=== PATIENT | male | born 1945 | race Caucasian/White ===

== ENCOUNTER → 2016-05-13 | Day surgery (SDC) | payer OTHER ==
[~2016-05-13] MED LIST: AMLO10TA2 PO; ASPI81CH CHEW; ATOR40TA16 PO; CEPH-460 PO; CLOP75TA PO; FAMO20TA2 PO; FISHCAP4 PO; GABA400C5 PO; GUAI600T11 PO; ISOS60TA PO; LACTATED RINGER'S 1000 ML INJ 1,000 ML ONE; LIDOCAINE 1%/EPINEPHrine 1:100,000 SOLN 20 ML VIAL ONE; LOSA100T PO; MAGN400T2 PO; METO25TA3 PO; NOVONP2 SQ; NOVORP2 SQ; PANT40TA3 PO; PROPOFOL 200 MG/20 ML AMP IV ONE; SPIR25TA PO; TRAM50TA PO; TRAZ100T4 PO; ceFAZolin INJ 1,000 MG VIAL ONE
--- NOTE | 2016-05-13 14:56 | TN ---
cc: CATHRYN MAE M.D. DATE OF SURGERY: 05/13/2016 PREOPERATIVE DIAGNOSIS Right hand middle finger and ring finger stenosing tenosynovitis. POSTOPERATIVE DIAGNOSIS Right hand middle finger and ring finger stenosing tenosynovitis. PROCEDURE Right hand middle finger and ring finger trigger finger releases. SURGEON Lisette Mae MD ASSESSMENT Staff SPECIMEN None. ESTIMATED BLOOD LOSS None. COMPLICATIONS None. ANESTHESIA General, TIVA, local. DRAINS None. TOURNIQUET TIME 19 minutes at 250 mmHg. CONDITION Stable. PLAN OF ACTIVITY Per orders. DETAILS OF PROCEDURE The patient was brought into the operating room and had satisfactory anesthesia by Dr. Alarcon and Dr. Correa of the Department of Anesthesia. The right upper extremity was prepped and draped in the usual sterile manner. The extremity was exsanguinated by Randy wrap. The tourniquet was inflated to 250 mmHg. A total of 6 cc of 1% lidocaine with epinephrine was used for local anesthesia at both the ring finger and the middle finger. A longitudinal incision was made on the ring finger over the A1 delonte. Dissection continued through subcutaneous tissue. The A1 delonte was incised longitudinally with a 15 blade and also with Metzenbaum scissors. A longitudinal incision was made on the middle finger over the A1 delonte. Dissection was carried to the midline. Identification of the A1 delonte was made. It was incised with a 15 blade and Metzenbaum scissors. The patient was then awakened. He was able to actively flex and extend his hand with no further catching or triggering. The wound was closed in multiple layers using 2-0 Vicryl suture. Skin was approximated with multiple interrupted 2-0 nylon suture. The tourniquet was deflated. The wound itself was dry. Sterile dressings were applied. The patient tolerated the procedure well and arrived in the recovery room in stable and satisfactory condition. MD DAT Hebert/GILBERT /2:28 PM /2:43 PM
== END | disposition home or self-care (01) ==
LOC: ESDC 11:59
PROVIDERS: ATTEND Orthopaedic Surgery Orthopaedic Surgery of the Spine
DX: M65.331 Trigger finger, right middle finger (principal); M65.341 Trigger finger, right ring finger; E11.9 Type 2 diabetes mellitus without complications
CPT/HCPCS: 01810; 26055; 82948; J0690; J3010; J7120

== ENCOUNTER 2016-05-25 10:26 | Emergency (ER) | payer OTHER, MEDICARE ==
[~2016-05-25] VITALS: Ht 185.4 cm; Wt 127.0 kg
[2016-05-25 10:29] VITALS: BP 138/67; PULSE 62; RESP 20; TEMP 97.2; O2SAT 90
[2016-05-25] MEDS ORDERED: CEPH-460 PO (11:01)
[2016-05-25] MEDS ORDERED: TRAZ100T4 PO (11:14)
[2016-05-25] MEDS ORDERED: NOVONP2 SQ (11:14)
[2016-05-25] MEDS ORDERED: LOSA100T PO (11:14)
[2016-05-25] MEDS ORDERED: GUAI600T11 PO (11:14)
[2016-05-25] MEDS ORDERED: SPIR25TA PO (11:14)
[2016-05-25] MEDS ORDERED: METO25TA3 PO (11:14)
[2016-05-25] MEDS ORDERED: FISHCAP4 PO (11:14)
[2016-05-25] MEDS ORDERED: NOVORP2 SQ (11:14)
[2016-05-25] MEDS ORDERED: GABA400C5 PO (11:14)
[2016-05-25] MEDS ORDERED: ISOS60TA PO (11:14)
[2016-05-25] MEDS ORDERED: AMLO10TA2 PO (11:14)
[2016-05-25] MEDS ORDERED: MAGN400T2 PO (11:14)
[2016-05-25] MEDS ORDERED: ATOR40TA16 PO (11:14)
[2016-05-25] MEDS ORDERED: TRAM50TA PO (11:14)
[2016-05-25] MEDS ORDERED: PANT40TA3 PO (11:14)
[2016-05-25] MEDS ORDERED: CLOP75TA PO (11:14)
[2016-05-25] MEDS ORDERED: FAMO20TA2 PO (11:14)
[2016-05-25] MEDS ORDERED: ASPI81CH CHEW (11:14)
[2016-05-25] MEDS ORDERED: VANCOMYCIN INJ 1,000 MG in SODIUM CHLOR 0.9% 250 ML INJ 250 ML IV ONE (11:15)
[2016-05-25] MEDS ORDERED: cefTRIAXone INJ 2,000 MG in SODIUM CHLORIDE 0.9% INJ 100 ML IV ONE (11:15)
[2016-05-25] MEDS ORDERED: SODIUM CHLORIDE 0.9% FLUSH 10 ML FLUSH IVF PRN (11:15)
--- NOTE | 2016-05-25 11:24 | PD ---
HPI . Wound infection Chief Complaint: Skin Problem Time Seen by Provider: 10:58 Travel History International Travel<30 days: No Contact w/Intl Traveler<30days: No Traveled to known affect area: No History of Present Illness HPI Patient presents with about a 3 day history of a wound infection in the right hand. Patient is status post recent trigger fingers on 05/13. His right third and fourth flexor tendons were released. Sutures were removed on 05/20. He did well until about 3 days ago when he developed increasing pain, swelling and redness. He talked with his orthopedic surgeon yesterday who placed him on Keflex. He has had 4 doses of Keflex and things are worse rather than better. 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) Social History Alcohol Use: No Tobacco Use: No Substance Use: No Allergies-Medications (Allergen,Severity, Reaction): Coded Allergies: Effexor (Verified Allergy, Severe, 05/25/16) Fenofibrate (Verified Allergy, Severe, Nausea/Vomiting, 05/25/16) Lisinopril (Verified Allergy, Severe, Cough, 05/25/16) Niacin (Verified Allergy, Unknown, 05/25/16) Remeron Lee Ann-Tab (Verified Allergy, Unknown, 05/25/16) Reported Meds & Prescriptions Reported Meds & Active Scripts Active Reported Trazodone (Trazodone HCl) 100 Mg Tab 100 Mg PO HS Tramadol (Tramadol HCl) 50 Mg Tab 50 Mg PO Q12HR PRN Spironolactone 25 Mg Tab 25 Mg PO WEEKLY Pantoprazole (Pantoprazole Sodium) 40 Mg Tab 40 Mg PO DAILY Novolin R Inj (Insulin Human Regular) 1,000 Unit/10 Ml Vial 16 Units SQ BID Novolin N Inj (Insulin Human NPH) 1,000 Unit/10 Ml Vial 84 Units SQ BID Metoprolol Tartrate 25 Mg Tab 25 Mg PO BID Magnesium Oxide 400 Mg Tab 420 Mg PO DIRECTED Losartan (Losartan Potassium) 100 Mg Tab 100 Mg PO DAILY Isosorbide Mononitrate ER (Isosorbide Mononitrate) 60 Mg Tab 60 Mg PO DAILY Mucus Relief ER (Guaifenesin) 600 Mg Tab 400 Mg PO BID PRN Gabapentin 400 Mg Cap 400 Cap PO BID Fish Oil + D3 (Fish Oil-Cholecalciferol) 1,200-1,000 Mg-Unit Cap 1 Cap PO DAILY Famotidine 20 Mg Tab 20 Mg PO BID Clopidogrel (Clopidogrel Bisulfate) 75 Mg Tab 75 Mg PO DAILY Atorvastatin (Atorvastatin Calcium) 40 Mg Tab 40 Mg PO HS Aspirin 81 Mg Chew 81 Mg CHEW DAILY Amlodipine (Amlodipine Besylate) 10 Mg Tab 10 Mg PO DAILY Keflex (Cephalexin) 500 Mg Cap 500 Mg PO Q6H Review of Systems Except as stated in HPI: all other systems reviewed are Neg General / Constitutional: No: Fever, Chills Musculoskeletal: Positive: Myalgias (pain in the palm of the right hand) Skin: Positive Other (redness and discharge from the surgical wound in the palm of the right hand) Physical Exam Narrative GENERAL: Awake and alert and in no acute distress. SKIN: Warm and dry. He has surgical wounds on the palm of the right hand. The wound associated with the fourth flexor tendon is clean appearing. There is no tenderness, redness, warmth, unusual swelling. He has full movement of the ring finger without difficulty. The wound associated with the third finger is erythematous with swelling and a white eschar in the wound. The wound has opened. He complains of pain on movement of the third digit but allows full passive range of motion of the third digit. CARDIOVASCULAR: Regular rate and rhythm. RESPIRATORY: No accessory muscle use. MUSCULOSKELETAL: No obvious deformities. No edema. NEUROLOGICAL: Awake and alert. No obvious cranial nerve deficits. Motor grossly within normal limits. Normal speech. PSYCHIATRIC: Appropriate mood and affect; insight and judgment normal. Data Data Last Documented VS Vital Signs Date Time Temp Pulse Resp B/P Pulse Ox O2 Delivery O2 Flow Rate FiO2 05/25/16 10:53 58 18 05/25/16 10:29 97.2 138/67 90 Room Air Orders Basic Metabolic Panel (Bmp) (05/25/16 11:05) Complete Blood Count With Diff (05/25/16 11:05) Blood Culture (05/25/16 11:05) Wound Culture And Gram Stain (05/25/16 11:05) Iv Access Insert/Monitor (05/25/16 11:05) Sodium Chloride 0.9% Flush (Ns Flush) (05/25/16 11:15) Ceftriaxone Inj (Rocephin Inj) (05/25/16 11:15) Vancomycin Inj (Vancomycin Inj) (05/25/16 11:15) Labs Laboratory Tests Test 05/25/16 11:20 White Blood Count 7.4 TH/MM3 Red Blood Count 5.15 MIL/MM3 Hemoglobin 15.5 GM/DL Hematocrit 44.7 % Mean Corpuscular Volume 86.8 FL Mean Corpuscular Hemoglobin 30.1 PG Mean Corpuscular Hemoglobin 34.7 % Concent Red Cell Distribution Width 13.0 % Platelet Count 141 TH/MM3 Mean Platelet Volume 9.7 FL Neutrophils (%) (Auto) 59.8 % Lymphocytes (%) (Auto) 31.1 % Monocytes (%) (Auto) 6.6 % Eosinophils (%) (Auto) 1.7 % Basophils (%) (Auto) 0.8 % Neutrophils # (Auto) 4.4 TH/MM3 Lymphocytes # (Auto) 2.3 TH/MM3 Monocytes # (Auto) 0.5 TH/MM3 Eosinophils # (Auto) 0.1 TH/MM3 Basophils # (Auto) 0.1 TH/MM3 CBC Comment DIFF FINAL Differential Comment Sodium Level 137 MEQ/L Potassium Level 4.0 MEQ/L Chloride Level 104 MEQ/L Carbon Dioxide Level 24.5 MEQ/L Anion Gap 9 MEQ/L Blood Urea Nitrogen 21 MG/DL Creatinine 1.47 MG/DL Estimat Glomerular Filtration 47 ML/MIN Rate Random Glucose 243 MG/DL Calcium Level 9.1 MG/DL [facility] Medical Decision Making Medical Screen Exam Complete: Yes Emergency Medical Condition: Yes Differential Diagnosis My differential diagnosis includes but is not limited to localized wound infection, cellulitis, abscess Narrative Course Patient presents for evaluation and treatment of a wound infection. I have queried up-to-date regarding diagnosis and treatment. It suggest blood cultures and wound cultures but no radiographic studies. It suggests treatment with either Cipro or a 3rd generation cephalosporin plus vancomycin. Those things have been ordered. He will probably need to be admitted to the hospital for IV antibiotics and for exploration and debridement of the wound. CBC & BMP Diagram 05/25/16 11:20 This patient is not at all interested in admission for IV antibiotics and surgical consultation. He will be discharged home with instructions to follow- up with Dr. Evans tomorrow. Diagnosis Primary Impression: Wound infection after surgery Qualified Code: T81.4XXA - Wound infection after surgery, initial encounter Referrals: Papito Evans MD 1 day Disposition: DISCHARGE HOME Condition: Stable Chantelle Gotti MD May 25, 2016 11:24
[2016-05-25 11:45] LABS: AUTOMATED NEUTROPHIL # 4.4 TH/MM3 (1.8-7.7); BASOPHIL # 0.1 TH/MM3 (0-0.2); BASOPHIL % 0.8 % (0.0-2.0); EOSINOPHIL # 0.1 TH/MM3 (0-0.4); EOSINOPHIL % 1.7 % (0.0-4.0); HEMATOCRIT 44.7 % (39.0-51.0); HEMO FLAGS DIFF FINAL; LYMPH % 31.1 % (9.0-44.0); LYMPHOCYTE # 2.3 TH/MM3 (1.0-4.8); MEAN CELL VOLUME 86.8 FL (80.0-100.0); MEAN CORPUSCULAR HEMOGLOBIN 30.1 PG (27.0-34.0); MEAN CORPUSCULAR HGB CONC 34.7 % (32.0-36.0); MONO % 6.6 % (0.0-8.0); NEUT % 59.8 % (16.0-70.0); PLATELET COUNT 141 TH/MM3 (150-450); RED BLOOD COUNT 5.15 MIL/MM3 (4.50-5.90); WHITE BLOOD COUNT 7.4 TH/MM3 (4.0-11.0)
[2016-05-25 12:02] LABS: BICARBONATE 24.5 MEQ/L (21.0-32.0)
== END 2016-05-25 13:30 | disposition home or self-care (01) ==
LOC: NEPA 10:26
DX: T81.4XXA Infection following a procedure, initial encounter (principal); L08.9 Local infection of the skin and subcutaneous tissue, unspecified; B95.61 Methicillin susceptible Staphylococcus aureus infection as the cause of diseases classified elsewhere
CPT/HCPCS: 80048; 85025; 86403; 87040; 87070; 87186; 96365; 96366; 96368; 99284; J0696; J3370; J7050